=== PATIENT | female | born 1980 | race Asian ===

== ENCOUNTER 2025-01-19 04:50 | Emergency (ER) | payer OTHER, SELFPAY ==
[2025-01-19 04:52] VITALS: BP 132/95
[2025-01-19 05:06] VITALS: BMI 24.4
[2025-01-19 05:16] VITALS: BP 136/90
[2025-01-19 05:26] LABS: % Basophils 0.4 % (0-2); % Eosinophils 1.5 % (0-6); % Immature Granulocytes 0.4 % (0-0.5); % Lymphocytes 24.7 % (20.5-51.1); Absolute Eosinophils 0.1 10^3/uL (0-0.7); Absolute Lymphocytes 1.2 10^3/uL (1.2-3.4); Absolute Monocytes 0.5 10^3/uL (0.1-0.6); Hematocrit 35.5 % (37.0-47.0); Hemoglobin 11.9 g/dL (12.0-16.0); Mean Corp Hgb Conc. 33.5 g/dL (33.0-37.0); Mean Corpuscular Hgb 29.2 pg (27.0-31.0); Mean Platelet Volume 10.6 fL (7.4-10.4); Nucleated Red Blood Cells % 0 %; Platelet Count 240 10^3/uL (130-400); Red Blood Cell Count 4.08 10^6/uL (4.20-5.40); Red Cell Dist. Width 13.9 % (11.5-14.5); White Blood Cell Count 4.8 10^3/uL (4.8-10.8)
[2025-01-19 05:56] LABS: ALT (SGPT) 45 U/L (0-35); AST (SGOT) 38 U/L (14-36); Albumin 4.3 g/dl (3.5-5.0); Alkaline Phosphatase 68 U/L (38-126); Blood Urea Nitrogen 7 mg/dl (7-17); Carbon Dioxide 21 mmol/L (22-30); Chloride 111 mmol/L (98-107); Estimated Creatinine Clearance 101 ml/min; Glucose 101 mg/dl (70-99); Potassium 4.1 mmol/L (3.5-5.1); Sodium 141 mmol/L (135-145); Total Bilirubin 0.5 mg/dl (0.2-1.3); eGFR > 60.00
[2025-01-19 06:00] VITALS: BP 136/93
[2025-01-19 06:06] LABS: Troponin I < 0.012 ng/ml
[2025-01-19 07:00] VITALS: BP 129/93
--- NOTE | 2025-01-19 07:21 | ED.GENMED ---
History of Present Illness
General
Chief Complaint: Weakness
Time Seen by Provider: 01/19/25 06:37
History of Present Illness
History of Present Illness:
44-year-old female without significant past medical history presenting to the emergency department for general weakness. Patient reports last night she had a 'sinking' feeling and also had some pain in her left shoulder. Notes last week she had
pain in her right shoulder, is now on the left side. Reports a lot of stress with her job. Denies chest pain or difficulty breathing. Denies fever. Denies any known history of cardiac disease. Denies abdominal pain or GI symptoms. Denies fever
or recent illness. Denies fall or trauma. Denies additional acute medical complaints
Past History
Past History
ED Past Medical History: None
Social History
Tobacco: Non-smoker
Personal:
Living: with family
Phy Exam
Physical Exam
Physical Exam:
General: Well-appearing, no clinical signs of dehydration, nontoxic and in no acute distress
HEENT: protecting airway
Neck: appears supple
CV: Normal heart rate, regular rhythm
Resp: No accessory muscle use, no increased work of breathing, lungs clear to auscultation bilaterally
Abd: Soft and non-distended, no tenderness to palpation
Extremities: No deformities, no swelling
Neuro: alert, no focal neurologic deficit
: deferred
Rectal: deferred
Psych: Normal affect
Skin: Intact
Course
Orders/Labs/Results
Orders:
Orders
01/19/25 04:55
EKG [Electrocardiogram (*1)] Urgent
Reason for Study: Fatigue / Weakness
EKG- Treatment ONCE
01/19/25 05:14
CMP [Comprehensive Metabolic Panel] Urgent
Complete Blood Count/With Diff Urgent
Troponin I Urgent
Abnormal Lab Results
01/19/25
05:14
RBC 4.08 L 10^6/uL
(4.20-5.40)
Hgb 11.9 L g/dL
(12.0-16.0)
Hct 35.5 L %
(37.0-47.0)
MPV 10.6 H fL
(7.4-10.4)
Monocytes % 10.0 H %
(1.7-9.3)
Chloride 111 H mmol/L
(98-107)
Carbon Dioxide 21 L mmol/L
(22-30)
Glucose 101 H mg/dl
(70-99)
AST 38 H U/L
(14-36)
ALT 45 H U/L
(0-35)
01/19/25 05:14
01/19/25 05:14
Vital Signs
Initial and Last Documented VS:
Initial Vital Signs
Temp Pulse Resp BP Pulse Ox
97.6 F 65 14 132/95 99
01/19/25 04:52 01/19/25 04:52 01/19/25 04:52 01/19/25 04:52 01/19/25 04:52
Last Documented Vital Signs
Temp Pulse Resp BP Pulse Ox
97.6 F 66 18 136/93 99
01/19/25 04:52 01/19/25 06:30 01/19/25 06:47 01/19/25 06:00 01/19/25 06:30
MDM/Problems Addressed
MDM/Problems Addressed:
44-year-old female presenting for generalized weakness and shoulder pain. Vital signs on arrival are normal.
On exam patient resting comfortably, no acute distress or discomfort. Overall unremarkable examination. Patient nontoxic. Mild tenderness to the posterior aspect of the left shoulder along the musculature. Range of motion intact. No swelling or
deformity. No neurovascular compromise. 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 Suspect musculoskeletal source, possible hypertonicity over the musculature. Generalized weakness, 'sinking 'feeling. She suspects some anxiety
component, as well as stress. EKG obtained, nonischemic. Labs obtained prior to my assessment, unremarkable, normal troponin. Also feel stable for discharge, with outpatient primary care follow-up. Advised ibuprofen or Tylenol as needed for
symptoms. Return precautions discussed the patient verbalized understanding
*EKG
Interpreted by ED Provider?: Yes
EKG Intrepretation Date: 01/19/25
EKG Intrepretation Time: 07:23
Interpretation: normal
Heart Rate: 62
Rate: normal
Rhythm: sinus
[place]: normal axis
Interval: normal interval
QRS Pattern: normal QRS
Ischemia: no ischemia
*Critical Care Note
Total Time (30-74mins, 75-104mins- exclusive of procedures): Not Applicable
ED Attending Note
-
Portions of this chart may have been created with voice recognition software.� Occasional wrong word or��sound alike� substitutions may have occurred due to the inherent limitations of voice recognition software.
Discharge Plan
Departure
Prescriptions:
No Action
vitamin B complex 1 EACH tablet
1 ea PO DAILY
Multivitamin
1 tab PO DAILY
amoxicillin-pot clavulanate 1 TABLET tablet
1 tab PO Q12 Qty: 20 0RF
Referrals:
UNKNOWN - PT DOES,NOT KNOW [Family Provider]
Interventions
Interventions:
*Risk Screen - Suicide Last Done: 01/19/25 04:52
*General Assessment Last Done: 01/19/25 05:06
*Neglect/Abuse Screening Last Done: 01/19/25 05:03
*ED- Fall Risk Assessment Last Done: 01/19/25 05:06
*ED COVID-19 Vaccine History Last Done: 01/19/25 05:02
ED- Cardiac Assessment Last Done: 01/19/25 05:27
ED- Neurological Assessment Last Done: 01/19/25 05:27
ED- Pulmonary Assessment Last Done: 01/19/25 05:27
Discharge Date and Time
Print Language: CZECH
== END 2025-01-19 08:07 | disposition home or self-care (01) ==
LOC: EMR 04:50
PROVIDERS: Emergency Medicine; EMERGENCY PHYSICIAN Student in an Organized Health Care Education/Training Program
DX: R53.1 Weakness (principal)
CPT/HCPCS: 99283; 80053; 84484; 85025; 93005